=== PATIENT | male | born 1985 | race Caucasian/White ===

== ENCOUNTER 2021-01-09 18:38 | Emergency (ER) | payer OTHER ==
[~2021-01-09] VITALS: Ht 180.3 cm; Wt 99.8 kg
[2021-01-09 18:56] VITALS: Ht 180.3 cm; Wt 99.8 kg
[2021-01-09 21:11] VITALS: BP 151/85
== END 2021-01-09 21:11 | disposition home or self-care (01) ==
LOC: ED 18:38
DX: M47.9 Spondylosis, unspecified (principal); M51.36 Other intervertebral disc degeneration, lumbar region; L40.9 Psoriasis, unspecified; I10 Essential (primary) hypertension
CPT/HCPCS: J1885